=== PATIENT | male | born 1945 | race Caucasian/White ===

== ENCOUNTER → 2016-11-07 | Outpatient (CLI) | payer OTHER, MEDICARE ==
[~2016-11-07] MED LIST: ALBUAER2 INH; FLUT0.15 NAE; FLUT1INH INH; MULT-506 PO; PSYL1POW4 PO; SILD100T PO; SYMIN160 INH; TAMS0.4C38 PO; [UNRECOGNIZED DRUG - CODE] PO
[2016-11-07 13:20] VITALS: BP 132/77; PULSE 53; TEMP 36.5; O2SAT 98
--- NOTE | 2016-11-07 17:16 | Radiation Oncology Follow-Up ---
Radiation Oncology Follow-Up Date of Visit November 07, 2016. (Nikky Romero PA-C) Reason For Visit 6 months follow up (Nikky Romero PA-C) Radiation Completion Date 04/10/16 (Nikky Romero PA-C) Diagnosis (1) Prostate cancer Status: Resolved Onset Date: 11/28/2015 Stage: ll Permanent Comment: DIAGNOSIS: Prostate, adenocarcinoma, ta 4 + 3, PSA 6.53 , cT1c, group IIA Prostate Volume - 42.19 cc by TRUS PSAD - 0.154 Status post completion of radiation therapy completed 04/10/2016 received 7920 cGy Last Edited By: Emily Panchal on May 14, 2016 12:10 (Nikky Romero PA-C) History of Present Illness Mr. Gamino is a 70 year old male who recently presented with an elevated PSA of 6.53. His PSA was up to 10.79 on 10/14/2015 and then 7.33 on 10/20/2015. He was referred to Dr. Jovanna Balderas who recommended a transrectal ultrasound -guided biopsy which was completed on 11/28/2015. The pathology results revealed [place] 4+3 prostate adenocarcinoma in the left apex in one core. In total, he had 14 cores biopsied. There is no evidence of any perineural invasion. The patient met with Dr. Balderas again and they discussed treatment options including surgery, radiation therapy. The patient is now seeing us in consultation to discuss the role of radiation therapy. Currently, the patient is doing relatively well overall. He has some urinary obstructive symptoms and his IPSS score is 12/35. Currently, he has no issues with potency. He takes no medications for sexual function. He denies any rectal hemorrhoids. He has no history of TURP or inflammatory bowel disease. He has no other complaints. Patient made a final decision to be treated with all external beam treatment. Gold fiducial markers were placed. Lupron therapy was not given. (Nikky Romero PA-C) Interim History He has been doing well from a urinary standpoint. The AUA was 9. He is not taking Tamsulosin on a regular basis. He took at times to help sleep through the night. He completed a Expanded prostate cancer index for clinical practice and gave a score of 2 of 12 in urinary incontinence symptoms. He gave a score of 2 of 12 in urinary irritation symptoms. He gave a score of 0 of 12 in bowel symptoms. He gave a score of 2 of 12 in sexual symptoms. He gave a score of 0 of 12 in hormone vitality symptoms. His total was 6 of 10. He has one episode of sexual difficultly. This has not reoccurred. (Nikky Romero PA-C) Allergies Coded Allergies: Amoxicillin (Verified Allergy, Unknown, Fainting, nausea, and vomiting, 12/08/15) Home Medications Scheduled Budesonide/Formoterol Fumarate (Symbicort 160/4.5 Inhaler ), 2 PUFFS INH DAILY Cod Liver Oil ([facility] Cod Liver Oil), 1 CAP PO DAILY Multivitamin (Multivitamin), 1 TAB PO DAILY Psyllium (Metamucil), 1 PKT PO DAILY Tamsulosin Hcl (Flomax), 1 CAP PO DAILY Scheduled PRN Albuterol (Ventolin Hfa), 1 PUFF INH QID PRN for Shortness of Breath Fluticasone Furoate-Vilanterol (Breo Ellipta), 1 PUFF INH DAILY PRN for Shortness of Breath Fluticasone Propionate (Nasal) (Flonase Allergy Relief), 1 SPRAY JUANA DAILY PRN for Nasal Congestion Sildenafil Citrate (Viagra), 1 TAB PO DAILY PRN for UNDECIDED Review of Systems Gastrointestinal: Symptoms: WNL GI Comments: taking probiotics for feelings of bloating Oral: Symptoms: No Problems Respiratory: Symptoms: WNL Respiratory Comments: allergies acting up, uses inhaler, gets SOB sometimes with asthma Urinary: Symptoms: WNL Comments: urgency Skin: Symptoms: No Problems (Nikky Romero PA-C) Physical Exam Vital Signs Date Time Temp Pulse Resp B/P Pulse Ox O2 Delivery O2 Flow Rate FiO2 11/07/16 13:20 36.5 53 16 132/77 98 Pain: Patient Pain Scale: 0 - 10 Initial Pain Intensity: 0.0 Fatigue: None General Appearance: no apparent distress Eyes: normal inspection, EOMI ENT: normal ENT inspection, hearing grossly normal Respiratory/Chest: lungs clear, no respiratory distress, no accessory muscle use Cardiovascular: regular rate, rhythm, no gallop, no murmur Abdomen: non tender, soft Extremities: no pedal edema Neurologic/Psychiatric: no motor/sensory deficits, alert, normal mood/affect Skin: warm/dry (Nikky Romero PA-C) Additional Studies He had a PSA at the primary care office and this was 0.12. His testosterone level was also normal. (Nikky Romero PA-C) Assessment & Plan Plan: He was also seen today by Dr. Panchal. He will continue to the PSA checked every 6 months. He will send us a copy. He has concerns about the number of people in his family who have had cancer of different types. We discussed being seen for genetic testing. He will decide and let us know if he wants to proceed with a referral we reviewed his laboratory studies the PSA as well as testosterone levels. A copy of the reports were given to the patient. At his request. I recommended that he use his medication for sleep trazodone when he he needs something for insomnia. He'll therefore not take the tamsulosin periodically bedtime. He has a recheck appointment with Dr. Balderas next month. We asked him to return to our office in 1 year. He'll call if he has any questions or concerns in the interim. (Nikky Romero PA-C) I agree with note created by Nikky Romero PA-C. I reviewed the patient's chart and information with her. I have examined and evaluated the patient. I reviewed relevant clinical information and answered the patient's and/or family' s questions. (Veeral. Panchal MD) Total Time In Follow-Up I spent 25 minutes speaking to the patient and performing examination. I spent 15 minutes reviewing information and completing this note. (Nikky Romero PA-C) I spent 15 minutes examining and counseling the patient. (Veeral. Panchal MD) Copy To John Shah M.D.; Jovanna Balderas MD
== END | disposition home or self-care (01) ==
LOC: C.ONC 13:12
PROVIDERS: ATTEND Physician Assistant Medical
DX: Z08 Encounter for follow-up examination after completed treatment for malignant neoplasm (principal); Z92.3 Personal history of irradiation; Z85.46 Personal history of malignant neoplasm of prostate